=== PATIENT | male | born 1985 | race Caucasian/White ===

== ENCOUNTER 2023-01-22 09:33 | Emergency (ER) | payer OTHER ==
[~2023-01-22] VITALS: Ht 177.8 cm; Wt 108.9 kg
[2023-01-22 10:14] VITALS: BP 145/99
[2023-01-22] MEDS ORDERED: OXYC5 PO (11:19)
[2023-01-22] MEDS ORDERED: BUPRENORPHINE HC8 MG SL (12:02)
== END 2023-01-22 12:16 | disposition home or self-care (01) ==
LOC: ER 09:33
DX: Z76.0 Encounter for issue of repeat prescription (principal)
CPT/HCPCS: 99281; A9270